=== PATIENT | male | born 1980 | race Asian ===

== ENCOUNTER → 2023-04-20 09:18 | Outpatient (BNVA) | payer OTHER, SELFPAY | PROVIDERS: Family Provider Family Medicine; PCP Family Medicine; Visit Provider Internal Medicine Cardiovascular Disease | DX: I21.9 Acute myocardial infarction, unspecified (principal); R07.9 Chest pain, unspecified | CPT/HCPCS: 93005 ==

== ENCOUNTER 2023-05-03 05:59 | Outpatient (CLI) | payer OTHER, SELFPAY ==
--- NOTE | 2023-05-03 06:15 | USCV_ITS ---
Jermaine Menard Age: 42 Gender: M : 1980 Exam Date: 05/03/2023 06:11 Ordering Phys: Yessica Sanchez MD ([email or web address]) Technologist: Bharti Canales [place]am [place] [facility] [place]ication: SOB and cardiomyopathy BP: 138 / 97 HR: 68 Rhythm: Sinus Technical Quality: Good MEASUREMENTS (Male / Female) Normal Values 2D ECHO LV Diastolic Diameter PLAX 4.4 cm 4.2 - 5.9 / 3.9 - 5.3 cm LV Systolic Diameter PLAX 3.4 cm LV Chamber Size 3.6 cm IVS Diastolic Thickness 1.0 cm 0.6 - 1.0 / 0.6 - 0.9 cm IVS Systolic Thickness 1.1 cm LVPW Diastolic Thickness 1.0 cm 0.6 - 1.0 / 0.6 - 0.9 cm LVPW Systolic Thickness 1.3 cm RV Chamber Size 3.2 cm LVOT Diameter 2.0 cm LV Ejection Fraction 2D Teich 36.9 % LV Ejection Fraction MOD 2C 70.0 % LV Ejection Fraction 2C AL 71.5 % LA Diameter 2.8 cm LA Width 2.9 cm LA Height 2.7 cm RA Width 2.9 cm RA Height 3.1 cm Aorta at Sinotubular Diameter 2.6 cm IVC Diameter 1.5 cm M-MODE Aortic Annulus Diameter 4.0 cm LA Ao Ratio MM 0.7 MV E Point Septal Separation 0.6 cm DOPPLER AV Peak Velocity 95.0 cm/s LVOT Peak Velocity 81.0 cm/s AV Area Cont Eq vti 2.7 cm squared AV Area Cont Eq pk 2.8 cm squared MV Area PHT 4.5 cm squared Mitral E to A Ratio 1.3 MV E' Velocity 45.0 cm/s Mitral E to MV E' Ratio 8.6 Mitral E to LV E' Lateral Ratio 7.3 Mitral E to LV E' Septal Ratio 10.4 TR Peak Velocity 207.0 cm/s TR Peak Gradient 17.1 mmHg TR Mean Velocity 152.2 cm/s TR Mean Gradient 9.9 mmHg TR Velocity Time Integral 50.5 cm TV Peak E Velocity 71.0 cm/s Right Atrial Pressure 3.0 mmHg Pulmonary Artery Systolic Pressu 20.1 mmHg RV Acceleration Time 0.1 s RV Ejection Time 0.3 s RV AcT/ET 0.3 FINDINGS Left Ventricle Normal left ventricular size, systolic function and upper normal wall thickness, with no regional wall motion abnormalities. Left ventricular ejection fraction is estimated at 65 %. Normal diastolic function. Right Ventricle Normal right ventricular size and systolic function. Right ventricular systolic pressure 20.1 mmHg. Right Atrium Normal right atrial size. Left Atrium Normal left atrial size. Mitral Valve Mildly thickened mitral valve with bowing of anterior mitral leaflet. No mitral valve stenosis. Trace to mild mitral valve regurgitation. Aortic Valve Structurally normal trileaflet aortic valve. No aortic valve stenosis. No aortic valve regurgitation. Tricuspid Valve Structurally normal tricuspid valve. No tricuspid valve stenosis. Trace tricuspid valve regurgitation. Pulmonic Valve Structurally normal pulmonic valve. No pulmonary valve stenosis. Trace pulmonary valve regurgitation. Pericardium No pericardial effusion. Aorta Normal size aortic root and proximal ascending aorta. IVC Normal IVC dimension with >50% respiratory change of the inferior vena cava. CONCLUSIONS 1. Normal left ventricular size, systolic function and upper normal wall thickness, with no regional wall motion abnormalities. Left ventricular ejection fraction is estimated at 65 %. Normal diastolic function. 2. Normal right ventricular size and systolic function. 3. Mildly thickened mitral valve with bowing of anterior mitral leaflet. Trace to mild mitral valve regurgitation. 4. Normal pulmonary artery pressure 5. No prior similar studies to compare. Yessica Sanchez MD (Electronically Signed) Final Date: 04 May 2023 11:20 S
== END 2023-05-03 06:00 | disposition home or self-care (01) ==
LOC: RAD 06:00
PROVIDERS: PCP Family Medicine; Visit Provider Internal Medicine Cardiovascular Disease
DX: R06.02 Shortness of breath (principal); Z15.89 Genetic susceptibility to other disease; I42.9 Cardiomyopathy, unspecified; I05.9 Rheumatic mitral valve disease, unspecified
CPT/HCPCS: 93306

== ENCOUNTER 2023-06-30 13:39 | Outpatient (CLI) | payer OTHER, SELFPAY ==
[2023-06-30 14:12] VITALS: PULSE 79; RESP 18; O2SAT 100
[2023-06-30] MEDS: albuterol 2.5 mg/3 mL Neb INHALATION (14:34)
== END 2023-06-30 13:40 | disposition home or self-care (01) ==
LOC: RT 13:40
PROVIDERS: PCP Family Medicine; Visit Provider Internal Medicine Pulmonary Disease
DX: Z15.89 Genetic susceptibility to other disease (principal)
CPT/HCPCS: 94060; 94726; 94729; J7613

== ENCOUNTER 2023-07-14 12:32 | Outpatient (CLI) | payer OTHER, SELFPAY ==
--- NOTE | 2023-07-14 12:45 | ECG_ITS ---
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 Interpretive Statements NAME OF STUDY: TREADMILL STRESS TEST INDICATION: Exertional Shortness of breath Baseline blood pressure of 168/100 mm Hg, heart rate of 79 beats per minute. EKG showed sinus rhythm, right axis deviation. Probable inferior MO of indeterminate age. Possible old anteroseptal infarct. ??? The patient exercised for 10 minutes and 38 seconds on a standard Obb protocol. Patient attained a maximum heart rate of 158 beats per minute(89% of the maximum predicted heart rate) with a blood pressure at the peak exercise of 216/101 mm Hg. The EKG at the peak exercise revealed sinus tachycardia with no significant ST-T wave changes. Patient did not have any chest pain or any significant arrhythmis with the exercise??? During the recovery phase, there were no new changes. ??? Blood pressure at the end of the recovery phase was 180/88 mm Hg with a heart rate of 98 beats per minute. ??? CONCLUSION: 1. Normal EKG response to treadmill exercise. 2. No exercise-induced chest pain or cardiac arrhythmia 3. Excellent exercise tolerance, attained a maximum of 13.5 METs. 4. Baseline hypertension with normal response to exercise. Electronically Signed On 07-14-2023 16:36:47 CDT by Yessica Sanchez M.D. [id number]
[2023-07-14 13:57] VITALS: BMI 21.7
[2023-07-14 13:59] VITALS: BP 180/80; PULSE 88
== END 2023-07-14 12:33 | disposition home or self-care (01) ==
LOC: CDL 12:33
PROVIDERS: PCP Family Medicine; Visit Provider Internal Medicine Cardiovascular Disease
DX: R06.02 Shortness of breath (principal)
CPT/HCPCS: 93017

== ENCOUNTER 2023-07-20 09:00 | Outpatient (CLI) | payer OTHER, SELFPAY | END 2023-07-20 09:01 | disposition home or self-care (01) | LOC: SLEEP 07-21 09:02 | PROVIDERS: PCP Family Medicine; Visit Provider Internal Medicine Pulmonary Disease | DX: G47.33 Obstructive sleep apnea (adult) (pediatric) (principal); R06.83 Snoring | CPT/HCPCS: G0399 ==

== ENCOUNTER 2023-07-26 11:45 | Outpatient (CLI) | payer OTHER, SELFPAY ==
--- NOTE | 2023-07-26 12:00 | CT_ITS ---
WS: [id number] CT CHEST CT-HIGH RESOLUTION, NONCONTRAST. HISTORY: Interstitial lung disease. Technique: High-resolution chest CT is performed in inspiration, expiration, supine and prone yvonne delphine. All CT scans at [facility] use at least one of these dose optimization techniques: automated exposure control; mA and/or kV adjustment per patient size (includes targeted exams where dose is mat ched to clinical indication); or iterative reconstruction. DLP: 839.61 mGy.cm COMPARISON: None. Findings: Lungs are clear. No pulmonary mass or nodule. No pericardial or pleural effusion. No bronchiectasis or interstitial thickening. There is no honeycombing. During expiration there is no rmal symmetric volume loss. The mild hazy attenuation during expiration is due to dependent changes. There is no persistent atelectasis on the prone imaging. No mediastinal or hilar adenopathy. Normal size aorta and pulmonary artery. There are a few tiny calc ifications in the LEFT anterior distending coronary artery. There is also a very small 9 mm nodule in the LEFT adrenal gland with low Hounsfield units. Impression: 1. No interstitial lung disease. No honeycombing or bronchiectasis. 2. There are a few tiny calcifications in the LEFT anterior descending coronary artery. 3. No pneumonia
== END 2023-07-26 11:46 | disposition home or self-care (01) ==
LOC: RAD 11:45
PROVIDERS: PCP Family Medicine; Visit Provider Internal Medicine Pulmonary Disease
DX: J84.9 Interstitial pulmonary disease, unspecified (principal)
CPT/HCPCS: 71250

== ENCOUNTER 2025-01-02 14:58 | Emergency (ER) | payer OTHER, SELFPAY ==
[2025-01-02 15:04] VITALS: BP 194/109; PULSE 71; RESP 17; TEMP 36.3; O2SAT 100; BMI 23.2
[2025-01-02 16:26] VITALS: BP 190/120; PULSE 83; RESP 16; O2SAT 100
--- NOTE | 2025-01-02 16:32 | CTR_ITS ---
PROCEDURE INFORMATION: Exam: CTA Abdomen and Pelvis With Contrast Exam date and time: 01/02/2025 5:05 PM Age: 44 years old Clinical indication: Abdominal pain; Generalized; Additional info: Luq pain, microscopic hematuria, BP 190s/120s, chronic uncontrolled HTN, near syncope, nausea, microscopic TECHNIQUE: Imaging protocol: Computed tomographic angiography of the abdomen and pelvis with contrast. Exam focused on the arteries. 3D rendering (Not supervised by radiologist): MIP and/or 3D reconstructed images were created by the technologist. Radiation optimization: All CT scans at this facility use at least one of these dose optimization techniques: automated exposure control; mA and/or kV adjustment per patient size (includes targeted exams where dose is matched to clinical indication); or iterative reconstruction. Contrast material: OMNIPAUQUE 350; Contrast volume: 100 ml; Contrast route: INTRAVENOUS (IV); COMPARISON: CT chest wo con [id number] 07/26/2023 12:15 PM RADIATION DOSE METRICS: Total DLP (mGy-cm): 429.05 FINDINGS: Aorta: No aortic aneurysm. No aortic dissection. Celiac trunk and mesenteric arteries: No occlusion or significant stenosis. Renal arteries: No occlusion or significant stenosis. Right iliac arteries: No occlusion or significant stenosis. Left iliac arteries: No occlusion or significant stenosis. Liver: No mass. Gallbladder and biliary ducts: Unremarkable. No calcified stones. No ductal dilation. Pancreas: Unremarkable. No mass. No ductal dilation. Spleen: Unremarkable. No splenomegaly. Adrenal glands: Unremarkable. No mass. Kidneys and ureters: There is a 2 mm stone lying in the ureterovesical junction portion of the left ureter. Mild hydronephrosis is noted. Stomach and bowel: Unremarkable. No obstruction. No mucosal thickening. Appendix: No evidence of appendicitis. Intraperitoneal space: Unremarkable. No free air. No significant fluid collection. Lymph nodes: Unremarkable. No enlarged lymph nodes. Urinary bladder: Unremarkable. No mass. Reproductive: Unremarkable as visualized. Bones/joints: No acute fracture. Soft tissues: Unremarkable. CT/CT angio abdomen pelvis [id number] IMPRESSION: 1. 2 mm left UVJ stone with hydronephrosis 2. No evidence of renal artery stenosis
--- NOTE | 2025-01-02 16:34 | W.ED.ABDPA2 ---
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 He thought it was simply gas. However the pain seem to escalate at times becoming severe. He felt nauseated and was burping. At times he had radiation to his left flank and lateral abdomen. Patient went to urgent care. He was found to have microscopic hematuria. They gave him Zofran and Toradol. Patient reports when the pain was severe he almost felt like passing out. He has no history of kidney stones although that is what they were concerned for and sent him to the ER. Patient was also found upon arrival to the ER to have blood pressure of 190/120. It was cycled several times and remains very high. Patient states that he is very bad about keeping track of his blood pressure. He has had high blood pressure for several years and takes olmesartan, last dose this morning. He does not know what his normal blood pressure is but says when he has checked it in the past it is usually in the 160s. He does not recall it ever being this high. As far as he knows no AAA. No abdominal surgeries. No testicular pain or scrotal pain. Related Data Home Medications ?Medication ?Instructions ?Recorded ?Confirmed aspirin 500 mg-sod bicarb 1,985 1 ea PO DAILY PRN Gastric Reflux 01/02/25 01/02/25 mg-citric acid 1,000 mg efferv tablet ([place] Extra Strength) Previous Rx's ?Medication ?Instructions ?Recorded atorvastatin 10 mg tablet 10 mg PO DAILY #90 tabs 06/18/24 hydrocodone 5 mg-acetaminophen 325 1 tab PO Q6H PRN pain (scale score 01/02/25 mg tablet 7-10) #20 tabs naproxen 250 mg tablet 250 mg PO BID PRN pain #20 tabs 01/02/25 olmesartan 40 mg tablet 40 mg PO DAILY #90 tabs 01/02/25 ondansetron 4 mg disintegrating 4 mg PO Q6H PRN nausea and 01/02/25 tablet vomiting #14 tabs Allergies Allergy/AdvReac Type Severity Reaction Status Date / Time No Known Allergies Allergy Verified 01/02/25 15:08 Review of Systems General: Reports: 10 or more systems reviewed and unremarkable except in HPI and below PFSH ED PFSH: Medical History (Updated 01/02/25 @ 17:44 by Félix Seo MD) Hyperlipidemia LDL goal <100 HTN (hypertension) Biallelic mutation of GNE gene Degenerative disc disease Lumbar facet arthropathy Lumbar spondylosis Family History Father Myocardial infarction [place] age 43 Hx of CABG Hypertension Family/Other Hx of CABG Myocardial infarction Grandmother Stroke Daughter Autism Mother Cancer Breast CA at 48 y/o Social History Smoking and tobacco/nicotine status: never used tobacco/nicotine Physical Exam Const: COMMON NORMALS: no limitations, alert and well nourished EXAM LIMITATIONS: no altered mental status HENMT: COMMON NORMALS: normocephalic, atraumatic and external ears normal HEAD & SCALP: normocephalic and atraumatic EXTERNAL EAR: Yes external ears normal MOUTH: no muffled voice Eye: COMMON NORMALS: EOMs intact bilaterally, conjunctivae normal and no scleral icterus CONJUNCTIVA: Yes conjunctivae normal Neck/C-Spine: COMMON NORMALS: no JVD GENERAL: Yes normal visual inspection and Yes trachea midline Resp: COMMON NORMALS: normal respiratory effort, No use of accessory muscles and clear to auscultation bilaterally AUSCULTATION: clear to auscultation bilaterally Cardio: COMMON NORMALS: no JVD, regular rate and regular rhythm RATE: regular rate RHYTHM: regular rhythm GI: COMMON NORMALS: Soft to palpation and non-tender PALPATION: Yes Soft to palpation, Yes Tenderness to palpation present (GI) (Mild tenderness in the left upper quadrant. No CVA percussion tenderness.) and No Guarding due to palpation present (GI) Extremity: COMMON NORMALS: normal to inspection Neuro: COMMON NORMALS: moves all extremities, no focal motor deficits and no sensory deficits noted SENSORIUM/ORIENTATION: Yes alert SPEECH: speech normal Psych: COMMON NORMALS: mental status grossly normal, Normal thought process present, cooperative, normal affect and speech normal SPEECH: Yes normal speech THOUGHT PROCESS: Normal thought process present Skin: COMMON NORMALS: no rashes or lesions noted, turgor normal and no jaundice GENERAL SKIN EXAM: no rashes or lesions noted and turgor normal Course Vital Signs: Vital signs: Vital Signs Temperature 97.4 F L 01/02/25 15:04 Pulse Rate 88 01/02/25 17:30 Respiratory Rate 16 01/02/25 17:30 Blood Pressure 164/87 01/02/25 17:30 Pulse Oximetry 98 01/02/25 17:30 Oxygen Delivery Me thod Room Air 01/02/25 15:04 MDM - Abdominal Pain Medical Decision Making Patient presents with left upper quadrant pain, nausea, feeling near syncope at times, indigestion feeling, bloated feeling. His abdomen is slightly tender in the left upper quadrant. I cannot elicit any CVA percussion tenderness on either side. No lower abdominal tenderness. No dysuria or urinary frequency. No scrotal or testicular pain. Blood pressure is very high. Differential diagnosis does include kidney stone but may also include atypical ACS, hypertensive urgency, mesenteric ischemia, AAA, partial bowel obstruction, constipation, GERD, and large differential diagnosis. There are some features of kidney stone but I do not think we can rely totally on this, especially with no previous history. We are going to do a CT angiogram of his abdomen and pelvis while we are evaluating for all of the aforementioned differential diagnosis. I am also going to give him labetalol for his very high blood pressure. I am also going obtain EKG and troponin in case this is a anginal equivalent. UPDATE White blood cell count is 12,000, hemoglobin normal, platelets normal. CMP shows a mildly low potassium. Creatinine 1.2 which is at the cutoff. GFR 65. Troponin reassuring. UA from earlier in the day was reviewed. No evidence of UTI. CT scan with angio protocol was performed of the abdomen and pelvis. I do not see any dissection. The mesenteric vessels look well-opacified. There is mild hydroureter on the left side with a distal ureterolith at the ureterovesicular junction. Patient's pain increased after CT scan and he was given some Dilaudid. Patient can be discharged with pain medication, nausea medication, Zofran and follow-up. Lab Data 01/02/25 16:24 01/02/25 16:24 Labs/Radiology: Radiology Impressions Abdomen/Pelvis CTA 01/02/25 16:32 IMPRESSION: 1. 2 mm left UVJ stone with hydronephrosis 2. No evidence of renal artery stenosis Laboratory Results WBC 11.97 10^3/uL (3.29-11.43) H 01/02/25 16:24 RBC 5.91 10^6/uL (3.85-5.65) H 01/02/25 16:24 Hgb 15.30 g/dL (11.27-16.99) 01/02/25 16:24 Hct 47.3 % (37-53) 01/02/25 16:24 MCV 80.0 fl (82-101) L 01/02/25 16:24 MCH 25.9 pg (27-33) L 01/02/25 16:24 MCHC 32.3 g/dL (30-55) 01/02/25 16:24 RDW 13.5 % (12.1-15.1) 01/02/25 16:24 Plt Count 283 10^3/cmm (157-399) 01/02/25 16:24 MPV 9.5 fL (7.4-10.4) 01/02/25 16:24 Neut % (Auto) 82.4 % 01/02/25 16:24 Lymph % (Auto) 12.0 % 01/02/25 16:24 [place] % (Auto) 4.8 % 01/02/25 16:24 Eos % (Auto) 0.4 % 01/02/25 16:24 Baso % (Auto) 0.1 % 01/02/25 16:24 Neut # (Auto) 9.86 10^3/uL (1.8-7.7) H 01/02/25 16:24 Lymph # (Auto) 1.4 10^3/uL (0.8-4.8) 01/02/25 16:24 [place] # (Auto) 0.6 10^3/uL (0.2-0.9) 01/02/25 16:24 Eos # (Auto) 0.1 10^3/uL (0.0-0.8) 01/02/25 16:24 Baso # (Auto) 0.0 10^3/uL (0.0-0.1) 01/02/25 16:24 Nucleated RBC % (auto) 0 % 01/02/25 16: Nucleated RBCs # 0.0 /100WBC 01/02/25 16:24 Sodium 140 mmol/L (136-145) 01/02/25 16:24 Potassium 3.4 mmol/L (3.5-5.1) L 01/02/25 16:24 Chloride 101 mmol/L (98-107) 01/02/25 16:24 Carbon Dioxide 27 mmol/L (22-29) 01/02/25 16:24 Anion Gap 15.4 (5-19) 01/02/25 16:24 BUN 18 mg/dL (6-20) 01/02/25 16:24 Creatinine 1.2 mg/dL (0.7-1.2) 01/02/25 16:24 GFR Calculation 65.5 mL/min (90-130) L 01/02/25 16:24 Glucose 125 mg/dL (65-115) H 01/02/25 16:24 Calculated Osmolality 293 mOsm/kg (285-295) 01/02/25 16:24 Calcium 9.6 mg/dL (8.5-10.5) 01/02/25 16:24 Total Bilirubin 0.6 mg/dL (0.15-1.2) 01/02/25 16:24 AST 20 U/L (0-40) 01/02/25 16:24 ALT 28 U/L (0-41) 01/02/25 16:24 Alkaline Phosphatase 73 U/L (40-130) 01/02/25 16:24 Troponin T Baseline 9 ng/L (0-15) 01/02/25 16:24 Total Protein 7.7 g/dL (6.6-8.7) 01/02/25 16:24 Albumin 4.9 g/dL (3.5-5.2) 01/02/25 16:24 Globulin 2.8 g/dL (1.3-4.6) 01/02/25 16:24 Lipase 48 U/L (13-60) 01/02/25 16:24 All radiology interpretation(s) finalized by discharge Discharge Plan Discharge Patient Disposition: Home Clinical Impression: Ureterolithiasis, Accelerated hypertension Condition: Stable Prescriptions: New olmesartan 40 mg tablet 40 mg PO DAILY Qty: 90 0RF hydrocodone-acetaminophen 5-325 mg tablet 1 tab PO Q6H PRN (Reason: pain (scale score 7-10)) Qty: 20 0RF naproxen 250 mg tablet 250 mg PO BID PRN (Reason: pain) Qty: 20 0RF ondansetron 4 mg tablet,disintegrating 4 mg PO Q6H PRN (Reason: nausea and vomiting) Qty: 14 0RF Discontinued olmesartan 20 mg tablet 20 mg PO DAILY Qty: 90 3RF No Action atorvastatin 10 mg tablet 10 mg PO DAILY Qty: 90 3RF [place] Extra Strength 500-1,985-1,000 mg Tablet, Effervescent 1 ea PO DAILY PRN (Reason: Gastric Reflux) Discharge Orders: Discharge ED (Routine); Ordered 01/02/25 Ordered By: Félix Seo Referrals: Vincent Paulino MD [Primary Care Provider] - 01/09/25 (Kidney stone) Patient Instructions: Kidney Stones (ED), How to Strain Your Urine (ED), Opioid Safety, Pain Management Activity Restrictions/Additional Instructions: Take naproxen twice daily for 7-10 days. Strain your urine to look for the kidney stone. If your kidney stone pain has not resolved in 7 days, please reach out to nephrology at [facility] or [facility]. At this time there is not a senior ssis developer practicing in [place]. Return to the emergency department if you have fever or decreased urine output. Your blood pressure medication has been increased to 40 mg of olmesartan a day from 20 mg a day. Please keep a blood pressure journal. If your blood pressure is too low then you may take only 20 mg of olmesartan daily. Follow-up with your primary care doctor in about 1 week. Print Language: Paraguayan Coding Level of Care Code ED Electrical Technician for Veronica Rojas
--- NOTE | 2025-01-02 16:39 | PC.PHAR ---
Patient states ahe still has his Atorvastatin but hasn't been taking it for a while.
[2025-01-02 16:41] LABS: Basophils % 0.1 %; Eosinophils # 0.1 10^3/uL (0.0-0.8); Eosinophils % 0.4 %; Hematocrit 47.3 % (37-53); Lymphocytes # 1.4 10^3/uL (0.8-4.8); Mean Corpuscular HGB Conc 32.3 g/dL (30-55); Mean Corpuscular Hemoglobin 25.9 pg (27-33); Mean Platelet Volume 9.5 fL (7.4-10.4); Monocytes # 0.6 10^3/uL (0.2-0.9); Monocytes % 4.8 %; Neutrophils # 9.86 10^3/uL (1.8-7.7); Neutrophils % 82.4 %; Nucleated Red Blood Cells % 0 %; Platelet Count 283 10^3/cmm (157-399); Red Blood Count 5.91 10^6/uL (3.85-5.65); Red Cell Distribution Width 13.5 % (12.1-15.1); White Blood Count 11.97 10^3/uL (3.29-11.43)
[2025-01-02] MEDS: cloNIDine 0.1 mg Tablet PO (16:43)
[2025-01-02] MEDS: labetalol 5 mg/mL SDV 20mL 20 MG IVP (16:43)
[2025-01-02 16:50] LABS: Alanine Aminotransferase 28 U/L (0-41); Albumin Level 4.9 g/dL (3.5-5.2); Alkaline Phosphatase 73 U/L (40-130); Anion Gap 15.4 (5-19); Aspartate Amino Transferase 20 U/L (0-40); Blood Urea Nitrogen 18 mg/dL (6-20); Calcium 9.6 mg/dL (8.5-10.5); Carbon Dioxide 27 mmol/L (22-29); Chloride 101 mmol/L (98-107); Creatinine Clr Calc Pharmacy 80.4782; Globulin 2.8 g/dL (1.3-4.6); Glomerular Filtration Rate 65.5 mL/min (90-130); Glucose 125 mg/dL (65-115); Lipase 48 U/L (13-60); Osmolality Calculated 293 mOsm/kg (285-295); Potassium 3.4 mmol/L (3.5-5.1); Sodium 140 mmol/L (136-145); Total Bilirubin 0.6 mg/dL (0.15-1.2); Total Protein 7.7 g/dL (6.6-8.7)
--- NOTE | 2025-01-02 16:51 | ECG_ITS ---
[facility] Test Date: 2025-01-02 Pat Name: Jermaine Menard Department: Room: Gender: Male Therapeutic Assistant: : 1980 Requested By: Félix Seo Order Number: [id number] Cydney MD: Emma Stockton M.D. Measurements Intervals [place] Rate: 79 P: 53 WA: 176 QRS: 106 QRSD: 128 T: 18 QT: 392 QTc: 452 Interpretive Statements SINUS RHYTHM WITH OCCASIONAL VENTRICULAR PREMATURE COMPLEXES RIGHT AXIS DEVIATION [QRS AXIS > 100] POSSIBLE ANTERIOR MYOCARDIAL INFARCTION , OF INDETERMINATE AGE [30 ms Q WAVE IN V3/V4, OR R < 0.2 mV IN V4] INFERIOR MYOCARDIAL INFARCTION , PROBABLY OLD [40+ ms Q WAVE AND/OR ST/T ABNORMALITY IN II/aVF] Compared to ECG 04/20/2023 09:36:36 Ventricular premature complex(es) now present Right-axis deviation now present Poor R-wave progression no longer present Myocardial infarct finding still present Electronically Signed On 01-02-2025 19:49:17 CDT by Emma Stockton M.D. [id number] [id number]
[2025-01-02 16:53] LABS: Troponin(5th) Baseline 9 ng/L (0-15)
[2025-01-02 17:01] VITALS: BP 178/111; PULSE 77; RESP 16; O2SAT 100
[2025-01-02] MEDS: iohexol 350 mg/mL 500 mL Btl (per mL) IV (17:22)
[2025-01-02 17:30] VITALS: BP 164/87; PULSE 88; RESP 16; O2SAT 98
[2025-01-02 18:03] VITALS: BP 167/97; PULSE 90; RESP 16; O2SAT 97
== END 2025-01-02 18:15 | disposition home or self-care (01) ==
PROVIDERS: Emergency Provider Emergency Medicine; PCP Family Medicine
DX: N20.1 Calculus of ureter (principal); I10 Essential (primary) hypertension; E78.5 Hyperlipidemia, unspecified
CPT/HCPCS: 36415; 74174; 80053; 81000; 83690; 84484; 85025; 93005; 96374; 99285; J3490; J9999